=== PATIENT | male | born 1990 | race Caucasian/White ===

== ENCOUNTER 2022-10-21 18:50 | Emergency (ER) | payer MEDICAID ==
[~2022-10-21] VITALS: Ht 170.2 cm; Wt 64.0 kg
[2022-10-21 19:07] VITALS: BP 121/75; PULSE 55; RESP 18; TEMP 97.9; O2SAT 99
[2022-10-21] MEDS ORDERED: NEOM10DR45 RIGHT EAR (19:11)
== END 2022-10-21 21:48 | disposition home or self-care (01) ==
LOC: ER 18:51
DX: H60.331 Swimmer's ear, right ear (principal); Z79.899 Other long term (current) drug therapy
CPT/HCPCS: 99283